=== PATIENT | female | born 2000 | race Caucasian/White ===

== ENCOUNTER 2020-02-21 23:55 | Observation (INO) | payer OTHER ==
[~2020-02-21] VITALS: Ht 149.9 cm; Wt 54.0 kg
== END 2020-02-22 03:22 | disposition home or self-care (01) ==
LOC: MLD 23:55
PROVIDERS: ADMIT Obstetrics & Gynecology; ATTEND Obstetrics & Gynecology
DX: O36.8130 Decreased fetal movements, third trimester, not applicable or unspecified (principal); O99.343 Other mental disorders complicating pregnancy, third trimester; F41.0 Panic disorder [episodic paroxysmal anxiety]; F41.9 Anxiety disorder, unspecified; Z3A.29 29 weeks gestation of pregnancy
CPT/HCPCS: 76815; G0378; Q0092

== ENCOUNTER 2020-03-18 20:18 | Inpatient (IN) | payer OTHER ==
[~2020-03-18] VITALS: Ht 149.9 cm; Wt 55.8 kg
[2020-03-18] MEDS ORDERED: OSC500 PO (21:58)
[2020-03-18] MEDS ORDERED: FERR325E14 PO (21:58)
[2020-03-18] MEDS ORDERED: PREN-380 PO (21:58)
[2020-03-18 22:09] LABS: APPEARANCE,URINE CLOUDY (CLEAR); BILIRUBIN,URINE NEGATIVE (NEGATIVE); BLOOD, URINE TRACE-I (NEGATIVE); COLOR,URINE YELLOW (YELLOW); LEUKOCYTE ESTERASE ,URINE 1+ (NEGATIVE); NITRITE, URINE NEGATIVE (NEGATIVE); PH,URINE 6.5 (5.0-9.0); UGLUCOSE NEGATIVE (NEGATIVE)
[2020-03-18 22:28] LABS: RBC,URINE 0-5 /HPF (0-5)
[2020-03-18 22:31] LABS: HYALINE CASTS, URINE 0-10 /LPF (None Seen)
[2020-03-18] MEDS ORDERED: BETAMETH ACET/BETAMETH NA PH 30 MG/5 ML VIAL IM ONE (23:09)
[2020-03-19 00:01] LABS: BASOPHILS % (AUTO) 0.3 % (0.0-2.0); EOSINOPHILS % (AUTO) 0.4 % (0.0-4.0); HEMATOCRIT 29.2 % (36-48); HEMOGLOBIN 9.8 g/dL (12.0-16.0); LYMPHOCYTES # (AUTO) 2.4 K/uL (2.5-16.5); LYMPHOCYTES % (AUTO) 24.4 % (20.5-51.1); MEAN CORPUSCULAR HEMOGLOBIN 28 pg (27-31); MEAN CORPUSCULAR HGB CONC 34 g/dL (33-37); MEAN CORPUSCULAR VOLUME 83.4 fL (80-94); MONOCYTES # (AUTO) 0.9 K/uL (0.8-1.0); MONOCYTES % (AUTO) 9.1 % (1.7-9.3); NEUTROPHILS # (AUTO) 6.4 K/uL (1.8-7.7); NEUTROPHILS % (AUTO) 65.8 % (42.2-75.2); PLATELET COUNT (AUTO) 292 K/uL (140-450); RED CELL DISTRIBUTION WIDTH 12.7 % (11.6-13.7); WHITE BLOOD COUNT (AUTO) 9.7 K/uL (4.5-11.0)
[2020-03-19 00:16] LABS: ALBUMIN 2.7 g/dL (3.4-5.0); ANION GAP 15.9 (8-16); CARBON DIOXIDE 22.1 mmol/L (21-32); CREATININE 0.6 mg/dL (0.6-1.3); TOTAL BILIRUBIN 0.2 mg/dL (0.0-1.0)
[2020-03-19] MEDS: LACTATED RINGERS 1,000 ML IV SCH ×3 (00:30→14:50)
[2020-03-19] MEDS: MAG SULF 2000 MG/WATER PREMIX 50 ML IV SCH ×2 (00:43→01:16)
[2020-03-19] MEDS: BETAMETH ACET/BETAMETH NA PH 30 MG/5 ML VIAL IM SCH ×2 (00:43→23:28)
[2020-03-19] MEDS ORDERED: MAG SULF 20 GM/H2O PREMIX DRIP 500 ML IV ONE (01:06)
[2020-03-19] MEDS ORDERED: NIFEdipine 10 MG CAPLF ONE (07:20)
[2020-03-19] MEDS ORDERED: NIFEdipine 10 MG CAPLF PO SCH (08:00)
--- NOTE | 2020-03-19 09:20 | NUR ---
PATIENT HAS BEEN SCREENED AND CATEGORIZED LOW NUTRITION RISK. PATIENT WILL BE SEEN WITHIN 7 DAYS OF ADMISSION. 03/25/[address]
[2020-03-19] MEDS: NIFEdipine 10 MG CAPLF PO SCH (19:35)
[2020-03-19] MEDS: MAG SULF 20 GM/H2O PREMIX DRIP 500 ML IV SCH (22:22)
[2020-03-20] MEDS: LACTATED RINGERS 1,000 ML IV SCH (00:40)
[2020-03-20] MEDS: NIFEdipine 10 MG CAPLF PO SCH ×4 (01:30→21:00)
[2020-03-20] MEDS: MAG SULF 20 GM/H2O PREMIX DRIP 500 ML IV SCH ×2 (09:12→20:02)
[2020-03-21] MEDS: LACTATED RINGERS 1,000 ML IV SCH (02:11)
[2020-03-21] MEDS: NIFEdipine 10 MG CAPLF PO SCH (03:00)
[2020-03-21] MEDS ORDERED: PANTOPRAZOLE 40 MG TABEC PO SCH (03:55)
[2020-03-21] MEDS ORDERED: PANTOPRAZOLE 40 MG TABEC PO ONE (04:06)
== END 2020-03-21 08:45 | disposition home or self-care (01) | DRG 566 ==
LOC: MLD 20:18 → INTOOBSV 03-19 → OBSVTOIN 03-19
PROVIDERS: ADMIT Obstetrics & Gynecology; ATTEND Obstetrics & Gynecology
DX: O23.43 Unspecified infection of urinary tract in pregnancy, third trimester (principal); O60.03 Preterm labor without delivery, third trimester; Z3A.33 33 weeks gestation of pregnancy
CPT/HCPCS: G0378 ×5; 36415; 76815; 76817; 80053; 81001; 85025; 86886; 86900; 86901; 87086; 87210; J0702; J3475; J7120; Q0092

== ENCOUNTER 2021-08-16 09:36 | Observation (INO) | payer SELFPAY ==
[~2021-08-16] VITALS: Ht 149.9 cm; Wt 59.0 kg
[~2021-08-16 09:36] MED LIST: FERR325E14 PO; OSC500 PO; PREN-380 PO
[2021-08-16 10:15] LABS: BASOPHILS % (AUTO) 0.4 % (0.0-2.0); EOSINOPHILS # (AUTO) 0.1 K/uL (0-0.4); EOSINOPHILS % (AUTO) 1.5 % (0.0-4.0); HEMATOCRIT 29.5 % (36-48); HEMOGLOBIN 10.3 g/dL (12.0-16.0); LYMPHOCYTES # (AUTO) 1.8 K/uL (2.5-16.5); LYMPHOCYTES % (AUTO) 23.3 % (20.5-51.1); MEAN CORPUSCULAR HEMOGLOBIN 29 pg (27-31); MEAN CORPUSCULAR HGB CONC 35 g/dL (33-37); MEAN CORPUSCULAR VOLUME 84.3 fL (80-94); MONOCYTES # (AUTO) 0.5 K/uL (0.8-1.0); MONOCYTES % (AUTO) 6.8 % (1.7-9.3); NEUTROPHILS # (AUTO) 5.2 K/uL (1.8-7.7); PLATELET COUNT (AUTO) 273 K/uL (140-450); RED CELL DISTRIBUTION WIDTH 12.5 % (11.6-13.7); WHITE BLOOD COUNT (AUTO) 7.7 K/uL (4.8-10.8)
[2021-08-16 10:23] LABS: ALBUMIN 3.1 g/dL (3.4-5.0); ANION GAP 11.1 (8-16); CARBON DIOXIDE 25.6 mmol/L (21-32); CREATININE 0.5 mg/dL (0.6-1.3); POTASSIUM 3.7 mmol/L (3.5-5.1); TOTAL BILIRUBIN 0.2 mg/dL (0.0-1.0)
[2021-08-16 11:13] LABS: URINE TOTAL PROTEIN 3.4 mg/dL (0-12)
== END 2021-08-16 11:28 | disposition home or self-care (01) ==
LOC: EEVIPCON 09:36 → MLD 09:36
PROVIDERS: ADMIT Obstetrics & Gynecology; ATTEND Obstetrics & Gynecology
DX: O26.892 Other specified pregnancy related conditions, second trimester (principal); R10.9 Unspecified abdominal pain; Z3A.19 19 weeks gestation of pregnancy; W06.XXXA Fall from bed, initial encounter; Y93.89 Activity, other specified; Y92.89 Other specified places as the place of occurrence of the external cause
CPT/HCPCS: 36415; 76805; 80053; 82570; 85025; 85384; G0378; G0379; Q0092